=== PATIENT | female | born 1955 | race Caucasian/White ===

== ENCOUNTER 2021-07-07 09:22 | Observation (INO) ==
[~2021-07-07 09:22] MED LIST: Buffered Lidocaine 1% SYRIN 1 ml INTRADERM ONE; DiMENhydriNATE IV 50 mg/ml 1 ml VIAL IV PUSH ONE; HYDROcodone/ACETAMIN 5/325 mg TAB PO PRN; Lactated Ringers 1000 ml BAG 1,000 ML IV SCH; Metoclopramide 5 MG/ML VIAL (10 mg) IV PRN; Naloxone 0.4 mg VIAL 0.4 mg/ml 1 ml VIAL IV PRN; Ondansetron 4 mg VIAL 2 MG/ML 2 ml VIAL IV PRN; fentaNYL 100 mcg/2 ml 50 MCG/ML VIAL IV PRN
[2021-07-07] MEDS ORDERED: DiMENhydriNATE IV 50 mg/ml 1 ml VIAL ONE (09:51)
[2021-07-07] MEDS ORDERED: ceFAZolin 2 GM in NS PREMIX 2 GM/100 ML BAG IVPB ONE (09:52)
[2021-07-07] MEDS ORDERED: Lidocaine 2% PF 5 ML VIAL ONE (11:54)
[2021-07-07] MEDS ORDERED: Rocuronium 50 mg VIAL 10 mg/ml 5 ml VIAL (50 mg) ONE (11:54)
[2021-07-07] MEDS ORDERED: fentaNYL 250 mcg/5 ml 50 MCG/ML 5 ml VIAL (250 MCG) ONE (11:54)
[2021-07-07] MEDS ORDERED: Propofol 10 MG/ML 20 ML BTL ONE (11:54)
[2021-07-07] MEDS ORDERED: Midazolam 2 mg/2 ml VIAL 1 mg/ml 2 ml VIAL (2 mg) ONE (11:58)
[2021-07-07] MEDS ORDERED: Bupivacaine 0.5% SDV PF 30ML VIAL ONE (12:12)
[2021-07-07] MEDS ORDERED: ceFAZolin VIAL VIAL ONE (12:12)
[2021-07-07] MEDS ORDERED: Dexamethasone IV 4 MG/ML VIAL 1 ml VIAL ONE (13:13)
[2021-07-07] MEDS ORDERED: Ondansetron 4 mg VIAL 2 MG/ML 2 ml VIAL ONE (13:13)
[2021-07-07] MEDS ORDERED: BUPIVACAINE **LIPOSOME/PF 13.3 MG/ML (266MG/ 20ML) VIAL (RESTRICTED) INFIL ONE (14:00)
[2021-07-07] MEDS ORDERED: HYDROmorphone 0.5 MG/0.5 ML SYRINGE ONE (15:43)
[2021-07-07] MEDS ORDERED: Labetalol IV 5 MG/ML 20 ml VIAL ONE (16:43)
[2021-07-07] MEDS ORDERED: HYDROcodone/ACETAMIN 5/325 mg TAB PO PRN (16:50)
[2021-07-07] MEDS ORDERED: Ondansetron 4 mg VIAL 2 MG/ML 2 ml VIAL IV PRN (16:50)
[2021-07-07] MEDS ORDERED: fentaNYL 100 mcg/2 ml 50 MCG/ML VIAL ONE (17:18)
[2021-07-07] MEDS ORDERED: hydrALAZINE 20 mg/ml 1 ML Vial IV IV SLOW PU PRN (17:24)
[2021-07-07] MEDS: HYDROcodone/ACETAMIN 5/325 mg TAB PO PRN (23:13)
[2021-07-08] MEDS ORDERED: Pneumococcal Vac 23-Polyvalent IM ONE (09:00)
[2021-07-08 11:22] VITALS: BP 128/56
[2021-07-08] MEDS: HYDROcodone/ACETAMIN 5/325 mg TAB PO PRN (12:22)
== END 2021-07-08 13:10 | disposition home or self-care (01) ==
LOC: SSU 09:22 → OR 09:22 → SUATTDRO 16:50
PROVIDERS: ADMIT Neurological Surgery; ATTEND Neurological Surgery